=== PATIENT | female | born 1990 | race Caucasian/White ===

== ENCOUNTER 2016-11-20 10:28 | Inpatient (IN) | payer OTHER ==
[~2016-11-20] VITALS: Ht 175.3 cm; Wt 90.3 kg
[2016-11-20] VITALS (15 sets, daily range): BP systolic 128–146; BP diastolic 78–93
[~2016-11-20 10:28] MED LIST: MOTRIN600 MG PO
[2016-11-20 12:33] LABS: EOSINOPHIL (%) 0.1 % (0-5); HEMATOCRIT 31.2 % (36.0-46.0); IMMATURE GRANULOCYTE (%) 0.7 % (0.0-0.7); IMMATURE GRANULOCYTE COUNT 0.1 K/uL; INSTRUMENT ABS NEUTROPHIL CT 12.2 K/uL; LYMPHOCYTE COUNT 1.4 K/uL (1.0-2.8); MCHC 30.4 G/DL (30.0-36.0); MCV 82.1 FL (83-99); MEAN PLAT.VOLUME 11.3 uM^3 (9.5-12.4); MONOCYTE (%) 5.6 % (3-12); MONOCYTE COUNT 0.8 K/uL (0-0.8); NEUTROPHIL (%) 83.5 % (45-76); NEUTROPHIL COUNT 12.2 K/uL (1.8-6.4); NRBC (%) 0.1 /100 WBC (0-0); PLATELET COUNT 363 K/uL (156-360); RBC DIS.WIDTH-CV 15.9 % (11.8-14.6); RBC DIS.WIDTH-SD 46.8 % (39-53); WHITE BLOOD COUNT 14.6 K/uL (4.1-10.2)
[2016-11-21 04:30] VITALS: BP 142/91
[2016-11-21 06:29] LABS: EOSINOPHIL (%) 0.2 % (0-5); HEMATOCRIT 22.4 % (36.0-46.0); IMMATURE GRANULOCYTE (%) 0.8 % (0.0-0.7); IMMATURE GRANULOCYTE COUNT 0.1 K/uL; INSTRUMENT ABS NEUTROPHIL CT 10.9 K/uL; LYMPHOCYTE COUNT 2.2 K/uL (1.0-2.8); MCH 25.1 PG (29.0-34.0); MCHC 30.8 G/DL (30.0-36.0); MCV 81.5 FL (83-99); MEAN PLAT.VOLUME 10.7 uM^3 (9.5-12.4); MONOCYTE (%) 7.1 % (3-12); NEUTROPHIL (%) 76.1 % (45-76); NEUTROPHIL COUNT 10.9 K/uL (1.8-6.4); NRBC (%) 0.1 /100 WBC (0-0); PLATELET COUNT 267 K/uL (156-360); RBC DIS.WIDTH-CV 15.9 % (11.8-14.6); RBC DIS.WIDTH-SD 46.5 % (39-53); WHITE BLOOD COUNT 14.3 K/uL (4.1-10.2)
[2016-11-21 06:30] LABS: RED BLOOD COUNT 2.75 M/uL (3.80-5.20)
[2016-11-21 08:46] VITALS: BP 131/70
[2016-11-21 14:32] VITALS: BP 138/83
[2016-11-21 22:18] VITALS: BP 129/83
[2016-11-22 06:06] VITALS: BP 135/83
[2016-11-22] MEDS ORDERED: IBUPROFEN800 MG PO (11:03)
[2016-11-22] MEDS ORDERED: CAMILA0.35 MG PO (11:03)
[2016-11-22] MEDS ORDERED: FERROUS GLUCON324 MG PO (11:04)
== END 2016-11-22 16:35 | disposition home or self-care (01) | DRG 775 ==
LOC: LDRP-OP 10:28 → 2WEST 10:29
PROVIDERS: Advanced Practice Midwife
DX: O76 Abnormality in fetal heart rate and rhythm complicating labor and delivery (principal); D62 Acute posthemorrhagic anemia; O77.0 Labor and delivery complicated by meconium in amniotic fluid; Z3A.40 40 weeks gestation of pregnancy; Z37.0 Single live birth; O99.02 Anemia complicating childbirth
CPT/HCPCS: 85025; 86850; 86900; 86901; J2590; J7120